=== PATIENT | male | born 1980 | race African-American/Black ===

== ENCOUNTER 2016-07-24 20:24 | Emergency (ER) | payer OTHER | END 2016-07-24 21:12 | disposition home or self-care (01) | LOC: FER 20:24 | DX: L03.317 Cellulitis of buttock (principal); I12.0 Hypertensive chronic kidney disease with stage 5 chronic kidney disease or end stage renal disease; E11.22 Type 2 diabetes mellitus with diabetic chronic kidney disease; N18.6 End stage renal disease; Z99.2 Dependence on renal dialysis; Z79.899 Other long term (current) drug therapy ==

== ENCOUNTER 2016-10-07 18:28 | Emergency (ER) | payer OTHER ==
[2016-10-07 20:00] LABS: BASOPHIL 0.2 % (0-2); EOSINOPHIL 0.9 % (0-5); HCT 40.3 % (42.0-52.0); HGB 13.9 g/dl (13.2-18.0); LYMPHOCYTE 11.6 % (15-48); MCHC 34.5 g/dL (32.0-36.0); MCV 92.6 fL (78.0-100.0); MPV 10.3 fL (6.0-9.5); NEUTROPHIL 75.3 % (41-80); PLT 220 K/uL (150-400); RBC 4.35 M/uL (4.70-6.00); WBC 8.6 K/uL (4.0-10.5)
[2016-10-07 20:10] LABS: INR 0.98 (0.9-1.2); PROTHROMBIN TIME 12.6 SECONDS (11.7-14.0)
[2016-10-07 20:11] LABS: PTT 31.1 SECONDS (23.2-31.4)
[2016-10-07 20:18] LABS: ALBUMIN 4.3 g/dL (3.5-5.0); BILIRUBIN - TOTAL 0.3 mg/dL (0.1-1.0); CKMB 1.78 ng/mL (0.97-4.94); GLOBULIN (CALCULATION) 3.6 g/dL (2.2-4.2); POTASSIUM 3.7 mmol/L (3.5-5.1); TOTAL PROTEIN 7.9 g/dL (6.4-8.3); TROPONIN T 0.056 ng/mL
== END 2016-10-08 00:26 | disposition home or self-care (01) ==
LOC: FER 18:28
PROVIDERS: Emergency Medicine Emergency Medical Services
DX: I95.1 Orthostatic hypotension (principal); E86.9 Volume depletion, unspecified; E11.22 Type 2 diabetes mellitus with diabetic chronic kidney disease; N18.6 End stage renal disease; Z82.0 Family history of epilepsy and other diseases of the nervous system; Z99.2 Dependence on renal dialysis
CPT/HCPCS: 36415; 70450; 71010; 80053; 80061; 82550; 82553; 83874; 84484; 85025; 85610; 85730; 93005

== ENCOUNTER 2020-06-03 08:40 | Emergency (ER) | payer OTHER ==
[~2020-06-03 08:40] MED LIST: BENTYL10 MG PO; CIPRO500 MG PO; CLEOCIN300 MG PO; COREG25 MG PO; METRONIDAZOLE500 MG PO; MINOXIDIL10 MG PO; NORCO 5-325 TA1 EACH PO; NORVASC5 MG PO; ONDANSETRON ODT4 MG SL; PRINIVIL20 MG PO; RENAGEL800 MG PO; REQUIP0.25 MG PO; ZOFRAN4 MG PO
[2020-06-03 09:14] LABS: BASOPHIL 0.4 % (0-2); EOSINOPHIL 2.9 % (0-5); HCT 31.5 % (42.0-52.0); LYMPHOCYTE 9.4 % (15-48); MCHC 31.7 g/dL (32.0-36.0); MCV 97.5 fL (78.0-100.0); MONOCYTE 8.9 % (0-12); NEUTROPHIL 78.1 % (41-80); NRBC 0; PLT 148 K/uL (150-400); RBC 3.23 M/uL (4.70-6.00); RDW 15.5 % (11.5-14.0); WBC 11.2 K/uL (4.0-10.5)
[2020-06-03 09:29] LABS: INR 1.05 (0.9-1.2)
[2020-06-03 09:30] LABS: PTT 35.6 SECONDS (22.2-34.7)
[2020-06-03 09:35] LABS: ALBUMIN 3.6 g/dL (3.4-5.0); BILIRUBIN - TOTAL 0.3 mg/dL (0.2-1.0); BUN/CREAT RATIO (CALC) 5.3 RATIO; CREATININE 5.83 mg/dL (0.67-1.17); GLOBULIN (CALCULATION) 3.1 g/dL; MAGNESIUM 2.2 mg/dL (1.8-2.4); POTASSIUM 4.1 mmol/L (3.5-5.1); TOTAL PROTEIN 6.7 g/dL (6.4-8.2)
[2020-06-03] MEDS ORDERED: ENDOCET 5-3251 EACH PO (14:13)
== END 2020-06-03 14:38 | disposition home or self-care (01) ==
LOC: FER 08:40
PROVIDERS: Emergency Medicine
DX: N28.89 Other specified disorders of kidney and ureter (principal); N18.6 End stage renal disease; Z99.2 Dependence on renal dialysis
CPT/HCPCS: 36415; 80053; 83735; 84145; 85025; 85610; 85730; 93005; J1170; J2405

== ENCOUNTER 2020-07-25 01:02 | Emergency (ER) | payer OTHER ==
[~2020-07-25 01:02] MED LIST changes: +ENDOCET 5-3251 EACH PO
[2020-07-25 03:07] LABS: BASOPHIL 0.4 % (0-2); EOSINOPHIL 2.3 % (0-5); HCT 25.3 % (42.0-52.0); HGB 8.2 g/dl (13.2-18.0); LYMPHOCYTE 12.9 % (15-48); MCH 31.9 pg (25.0-31.0); MCHC 32.4 g/dL (32.0-36.0); MCV 98.4 fL (78.0-100.0); MONOCYTE 8.1 % (0-12); MPV 10.4 fL (6.0-9.5); NRBC 0; PLT 145 K/uL (150-400); RBC 2.57 M/uL (4.70-6.00); RDW 15.7 % (11.5-14.0); WBC 9.6 K/uL (4.0-10.5)
[2020-07-25 04:30] LABS: INR 1.11 (0.9-1.2); PROTHROMBIN TIME 13.6 SECONDS (11.4-13.6); PTT 38.3 SECONDS (22.2-34.7)
[2020-07-25 04:32] LABS: HCT 24.5 % (42.0-52.0); HGB 8.1 g/dL (13.2-18.0)
[2020-07-25 06:20] LABS: BUN/CREAT RATIO (CALC) 4.5 RATIO; CREATININE 5.73 mg/dL (0.67-1.17); POTASSIUM 4.1 mmol/L (3.5-5.1)
== END 2020-07-25 08:56 | disposition other institution (70) ==
LOC: FER 01:02
PROVIDERS: Student in an Organized Health Care Education/Training Program
DX: K91.841 Postprocedural hemorrhage of a digestive system organ or structure following other procedure (principal); D64.9 Anemia, unspecified; Z99.2 Dependence on renal dialysis; Y83.8 Other surgical procedures as the cause of abnormal reaction of the patient, or of later complication, without mention of misadventure at the time of the procedure
CPT/HCPCS: 36415; 80048; 85014; 85018; 85025; 85610; 85730; 86850; 86900; 86901; J0360

== ENCOUNTER 2022-01-09 11:46 | Emergency (ER) | payer OTHER ==
[2022-01-09 12:15] LABS: BASOPHIL 0.5 % (0-2); EOSINOPHIL 5.5 % (0-5); HCT 27.4 % (42.0-52.0); HGB 8.8 g/dl (13.2-18.0); LYMPHOCYTE 13.2 % (15-48); MCH 30.9 pg (25.0-31.0); MCHC 32.1 g/dL (32.0-36.0); MCV 96.1 fL (78.0-100.0); MONOCYTE 6.8 % (0-12); MPV 9.6 fL (6.0-9.5); NEUTROPHIL 73.3 % (41-80); NRBC 0; PLT 193 K/uL (150-400); RBC 2.85 M/uL (4.70-6.00); RDW 17.2 % (11.5-14.0); WBC 7.5 K/uL (4.0-10.5)
[2022-01-09 12:20] LABS: INR 1.14 (0.9-1.2); PROTHROMBIN TIME 14.3 SECONDS (11.9-13.9); PTT 37.4 SECONDS (24.9-34.6)
[2022-01-09 12:34] LABS: ALBUMIN 3.8 g/dL (3.4-5.0); BILIRUBIN - TOTAL 0.9 mg/dL (0.2-1.0); BUN/CREAT RATIO (CALC) 3.6 RATIO; CREATININE 6.44 mg/dL (0.67-1.17); POTASSIUM 3.7 mmol/L (3.5-5.1); TOTAL PROTEIN 7.8 g/dL (6.4-8.2)
[2022-01-09 13:18] LABS: CORONAVIRUS 2019 SARS-COV-2 NEGATIVE (NEGATIVE); INFLUENZA A NAA NEGATIVE (NEGATIVE)
== END 2022-01-10 | disposition other institution (70) ==
LOC: FER 11:46
PROVIDERS: Emergency Medicine
DX: J96.01 Acute respiratory failure with hypoxia (principal); J81.1 Chronic pulmonary edema; I12.0 Hypertensive chronic kidney disease with stage 5 chronic kidney disease or end stage renal disease; N18.6 End stage renal disease; Z99.2 Dependence on renal dialysis; Z88.0 Allergy status to penicillin; Z20.822 Contact with and (suspected) exposure to COVID-19
CPT/HCPCS: 36415; 36600; 71045; 71275; 80053; 82803; 83735; 83880; 84484; 85025; 85610; 85730; 93005; Q9967; U0002